=== PATIENT | male | born 1965 | race Caucasian/White ===

== ENCOUNTER → 2021-10-22 14:04 | Outpatient (BNVA) | payer MEDICARE, SELFPAY | PROVIDERS: Family Provider Family Medicine; PCP Physician Assistant Medical; Visit Provider Specialist | DX: F41.9 Anxiety disorder, unspecified (principal); F32.A Depression, unspecified; F13.20 Sedative, hypnotic or anxiolytic dependence, uncomplicated; T42.4X5A Adverse effect of benzodiazepines, initial encounter; Z87.891 Personal history of nicotine dependence | CPT/HCPCS: 99205 ==

== ENCOUNTER → 2022-08-29 15:24 | Outpatient (BNVA) | payer MEDICARE, MEDICAID, SELFPAY | PROVIDERS: Family Provider Family Medicine; PCP Physician Assistant Medical; Visit Provider Specialist | DX: F41.1 Generalized anxiety disorder (principal); F32.A Depression, unspecified; G31.84 Mild cognitive impairment of uncertain or unknown etiology | CPT/HCPCS: 99215 ==

== ENCOUNTER → 2022-09-02 07:58 | Outpatient (BNVA) | payer MEDICARE, MEDICAID, SELFPAY | PROVIDERS: Family Provider Family Medicine; PCP Physician Assistant Medical; Referring Provider Specialist; Visit Provider Specialist | DX: G31.84 Mild cognitive impairment of uncertain or unknown etiology (principal) | CPT/HCPCS: 95812 ==

== ENCOUNTER 2022-11-26 15:39 | Outpatient (CLI) | payer MEDICARE, MEDICAID, SELFPAY ==
[2022-11-28 11:24] LABS: Lead Blood <1.0 mcg/dL (<3.5)
[2022-12-01 12:00] LABS: Arsenic Blood <10 mcg/L (<23); Mercury Blood <5 mcg/L (<OR=10)
== END 2022-11-26 15:40 | disposition home or self-care (01) ==
PROVIDERS: PCP Family Medicine; Visit Provider Family Medicine
DX: Z77.018 Contact with and (suspected) exposure to other hazardous metals (principal)
CPT/HCPCS: 82175; 83655; 83825

== ENCOUNTER 2023-07-17 14:22 | Outpatient (CLI) | payer MEDICARE, MEDICAID, SELFPAY ==
[2023-07-17 14:58] LABS: Basophils # 0.1 10^3/uL (0.0-0.1); Basophils % 1.3 %; Eosinophils # 0.1 10^3/uL (0.0-0.8); Eosinophils % 1.9 %; Hematocrit 41.9 % (37-53); Lymphocytes # 1.9 10^3/uL (0.8-4.8); Lymphocytes % 29.9 %; Mean Corpuscular HGB Conc 33.9 g/dL (30-55); Mean Corpuscular Hemoglobin 31.1 pg (27-33); Mean Corpuscular Volume 91.9 fl (82-101); Mean Platelet Volume 9.1 fL (7.4-10.4); Monocytes # 0.4 10^3/uL (0.2-0.9); Monocytes % 5.9 %; Neutrophils # 3.81 10^3/uL (1.8-7.7); Neutrophils % 60.7 %; Nucleated Red Blood Cells % 0 %; Platelet Count 262 10^3/cmm (157-399); Red Blood Count 4.56 10^6/uL (3.85-5.65); Red Cell Distribution Width 12.7 % (12.1-15.1); White Blood Count 6.28 10^3/uL (3.29-11.43)
[2023-07-17 15:38] LABS: Albumin Level 3.9 g/dL (3.5-5.2); Alkaline Phosphatase 73 U/L (40-130); Anion Gap 12.3 (5-19); Aspartate Amino Transferase 22 U/L (0-40); Blood Urea Nitrogen 12 mg/dL (6-20); Carbon Dioxide 28 mmol/L (22-29); Chloride 100 mmol/L (98-107); Chol HDL Ratio 3.62 mg/dL (1.0-5.00); Cholesterol 181 mg/dL (0-200); Globulin 3.1 g/dL (1.3-4.6); Glomerular Filtration Rate 86.7 mL/min (90-130); Glucose 91 mg/dL (65-115); HDL Cholesterol 50 mg/dL (60-100); LDL Cholesterol Calculated 115 mg/dL (50-129); Osmolality Calculated 281 mOsm/kg (285-295); Potassium 4.3 mmol/L (3.5-5.1); Sodium 136 mmol/L (136-145); Thyroid Stimulating Hormone 2.42 uIU/mL (0.27-4.20); Total Bilirubin 0.4 mg/dL (0.15-1.2); Triglycerides 78 mg/dL (0-150); Vitamin B12 466 pg/mL (232-1245)
[2023-07-17 15:49] LABS: Alanine Aminotransferase 14 U/L (0-41)
[2023-07-20 16:54] LABS: Copper Level 94 mcg/dL (70-175)
== END 2023-07-17 14:23 | disposition home or self-care (01) ==
LOC: LAB 14:25
PROVIDERS: PCP Family Medicine; Visit Provider Family Medicine
DX: E03.4 Atrophy of thyroid (acquired) (principal); K90.89 Other intestinal malabsorption; R53.82 Chronic fatigue, unspecified
CPT/HCPCS: 36415; 80053; 80061; 82525; 82607; 83735; 84443; 85025

== ENCOUNTER 2023-07-23 10:52 | Outpatient (CLI) | payer MEDICARE, MEDICAID, SELFPAY ==
--- NOTE | 2023-07-23 11:00 | XR_ITS ---
WS: [id number] Chest 2 views, 07/23/2023 Clinical Data: DYSPNEA ON EXERTION Comparison: Portable chest, 08/29/2015. Findings: No nodules, masses or effusions are seen. The heart is normal. The pulmonary vascularity is not increased. No pneumonia or pneumothorax is seen. The diaphragms are flattened. Impression: Hyperinflation.
== END 2023-07-23 10:53 | disposition home or self-care (01) ==
LOC: RAD 10:56
PROVIDERS: PCP Family Medicine; Visit Provider Family Medicine
DX: R06.09 Other forms of dyspnea (principal); R91.8 Other nonspecific abnormal finding of lung field
CPT/HCPCS: 71046

== ENCOUNTER 2025-06-03 13:19 | Emergency (ER) | payer MEDICARE, SELFPAY ==
[2025-06-03 13:23] VITALS: BP 141/81; PULSE 90; RESP 20; TEMP 36.5; O2SAT 98; BMI 25.8
--- OUTSIDE RECORDS SUMMARY | 2025-06-03 13:26 | XMS_ITS | Encounter Summary ---
Author Organization [facility] Address [address] [place] [address] Care Team Providers Care Filter Bed Placer Name Role Phone Nevaeh Campos Almita WANG Primary Care Provider [phone] Reason for Referral * Outpatient Services (Routine) - Closed Specialty Diagnoses / Procedures Referred By Contac t Referred To Contact Radiology Diagnoses Chest pain, unspecified type Palpitations SOB (shortness of breath) Procedures ECHO STRESS W CONTRAST EXER W DOPP AND COLOR FL ECHO STRESS TEST EXERCISE W DOPP AND COLOR FLOW Valdo Ferguson MD Phone: tel: [facility] [address] [place] [address] Phone: tel: fax: Referral ID Status Reason Start Date Expiration Date V isits Requested Visits Authorized [id number] Closed SGF [facility] TO SCHEDULE (SGF) 06/27/2016 07/28/2017 1 1 TERM CARE PHLEBOTOMIST Encounter Details Date Type Department Care Team (Late st Contact Info) Description 07/17/2016 Ancillary Orders [facility] [place] [address] [place] [address] Valdo Ferguson MD [address] [place] [id number] Chest pain, unspecified type; Palpitations; SOB (shortness of breath) Social History Tobacco Use Types Packs/Day Years Used Date Smoking Tobacco: Light Smoker Cigarettes 1.5 25 Started: 980; Last attempted to quit: 06/22/2004 E-Cigarette/Mist Inhalation Device Alcohol Use Standard Drinks/Week Comments Yes 0.8 (1 standard drink = 0.6 oz p ure alcohol) rarely Sex and Gender Information Value Date Recorded Sex Assigned at Not on file Legal Sex Male 3:32 AM LONG TERM CARE PHLEBOTOMIST Gender Identity Not on file Sexual Orientation Not on file documented as of this encounter Plan of Treatment Not on file documented as of this encounter Results * ECHO STRESS W CONTRAST EXER W DOPP AND COLOR FL (07/17/2016 3:18 PM LONG TERM CARE PHLEBOTOMIST) EJECTION FRACTION INTERFACE SYSTEM 07/17/2016 2:15 PM LONG TERM CARE PHLEBOTOMIST Narrative INTERFACE SYSTEM - 07/17/2016 5:45 PM [facility] [place] [address] Stress Echocardiography Ricky protocol Patient: Suzanne Study ECHO STRESS Chris Gregory ID: TEST Gender: M : 1965 Age: 50 Room: Study 07/17/2016 Pt Outpatient Date: Status: Study 02:15 PM CSN #: [id number] Time: Ordering:Keron Ferguson MD Interpreting:Agustin Nugent MD Manager Supplier: Krystal Ho [facility] Indications and History: Chest pain, unspecified type [R07.9 (ICD-10-CM)]; Palpitations [R00.2 (ICD-10-CM)]; SOB (shortness of breath) [R06.02 (ICD-10-CM)]. Risk factors: Family history of coronary artery disease. Current tobacco use. Labs, prior tests, procedures, and surgery: Echocardiography (November 22, 2014). Summary and Conclusion: - Left ventricle: The cavity size was normal. Wall thickness was normal. Systolic function was normal. The visually estimated ejection fraction was in the range of 55% to 60%. No diagnostic regional wall motion abnormality identified. - Right ventricle: The cavity size was normal. Systolic function was normal. - Mitral valve: Systolic bowing without prolapse. - Stress: Maximal heart rate during stress was 152bpm (90% of maximal predicted heart rate). The maximal predicted heart rate was 169bpm.The target heart rate was achieved. The rate-pressure product for the peak heart rate and blood pressure was 14236jw Hg/min. The patient experienced no chest pain during stress. Functional capacity was normal. - Stress ECG conclusions: There were no stress arrhythmias or conduction abnormalities. The stress ECG was negative for ischemia. Nguyen scoring: exercise time of 9.05min; maximum ST deviation of 0.5mm; no angina; resulting score is 7. This score predicts a low risk of cardiac events. - Staged echo: There was no echocardiographic evidence for stress-induced ischemia. Contrast used due to reduced image quality. Procedure information: Consent: The risks, benefits, and alternatives to the procedure were explained to the patient and consent was obtained. Procedure: Initial setup. A baseline ECG was recorded. Intravenous access was obtained. Surface ECG leads were monitored. Transthoracic echocardiography. Image quality was adequate. Scanning was performed from the parasternal, apical, and subcostal acoustic windows. Intravenous contrast (Definity) was administered to opacify the LV. There were no complications. Treadmill exercise testing was performed using the Ricky protocol. The patient exercised for 9 min, to protocol stage 3. Exercise was terminated due to achievement of target heart rate, mild dyspnea, and moderate fatigue. The patient was positioned for image acquisition and recovery monitoring. Transthoracic stress echocardiography. Images were captured at baseline and peak exercise. Study completion: The patient tolerated the procedure well. There were no complications. Ricky protocol. Study components: M-mode, complete 2D, complete spectral Doppler, and color Doppler. Height: Height: 175.3cm. Height: 69in. Weight: Weight: 85.7kg. Weight: 188.6lb. Body mass index: BMI: 27.9kg/m\S\2. Body surface area: BSA: 2.06m\S\2. Patient status: Outpatient. Study date: Study date: July 17, 2016. Location: Stress laboratory. Cardiac Anatomy: LEFT VENTRICLE: The cavity size was normal. Wall thickness was normal. Systolic function was normal. The visually estimated ejection fraction was in the range of 55% to 60%. No diagnostic regional wall motion abnormality identified. RIGHT VENTRICLE: The cavity size was normal. Systolic function was normal. LEFT ATRIUM: The atrium was normal in size. RIGHT ATRIUM: The atrium was normal in size. AORTIC VALVE: Trileaflet. Doppler: There was no stenosis. No significant regurgitation. Peak velocity ratio of LVOT to aortic valve: 0.9. Peak gradient: 5mm Hg (S). MITRAL VALVE: Systolic bowing without prolapse. Doppler: There was no evidence for stenosis. Trivial regurgitation. Valve area by pressure half-time: 2.97cm\S\2. Indexed valve area by pressure half-time: 1.44cm\S\2/m\S\2. TRICUSPID VALVE: Doppler: There was no evidence for stenosis. No regurgitation. PULMONIC VALVE: Not well visualized. Doppler: There was no evidence for stenosis. No regurgitation. PERICARDIUM: There was no pericardial effusion. AORTA: Aortic root: The aortic root was not dilated. Baseline ECG: Normal sinus rhythm. Stress protocol: - Baseline HR: 83bpm BP: 120/70 (87) - Peak stress HR: 152bpm BP: 158/84 (109) Stress results: Maximal heart rate during stress was 152bpm (90% of maximal predicted heart rate). The maximal predicted heart rate was 169bpm.The target heart rate was achieved. There was a normal resting blood pressure with an appropriate response to stress. The rate-pressure product for the peak heart rate and blood pressure was 64045jr Hg/min. The patient experienced no chest pain during stress. Functional capacity was normal. Stress ECG: There were no stress arrhythmias or conduction abnormalities. The stress ECG was negative for ischemia. Nguyen scoring: exercise time of 9.05min; maximum ST deviation of 0.5mm; no angina; resulting score is 7. This score predicts a low risk of cardiac events. Peak stress: LV size was reduced appropriately. LV global systolic function was appropriately augmented from baseline. No evidence for new LV regional wall motion abnormalities. Stress echo results: There was no echocardiographic evidence for stress-induced ischemia. Contrast used due to reduced image quality. 2D measurements Adult Normal Range Left ventricle LVID ED, chord, PLAX *58.7 mm 43-52 LVID ES, chord, PLAX 28.41 mm 23-38 FS, chord, PLAX 52 % >29 LVPW, ED 7.88 mm IVS/LVPW ratio, ED 0.95 <1.3 Vol ED, MOD1 91.1 ml Vol ES, MOD1 21.8 ml Stroke vol, MOD1 69.3 ml Vol index, ED, MOD1 44 ml/m\S\2 Vol index, ES, MOD1 11 ml/m\S\2 Stroke index, MOD1 33.6 ml/m\S\2 Vol ED, MOD2 73.3 ml 62-170 Vol ES, MOD2 23.9 ml EF, MOD2 67.41 % Vol index, ED, MOD2 36 ml/m\S\2 Vol index, ES, MOD2 12 ml/m\S\2 Ventricular septum IVS, ED 7.49 mm Aorta Root diam, ED 30.7 mm Left atrium AP dim ES, PLAX 34.08 mm 23-38 SI dim, A4C 44.49 mm 29-53 Area ES, A4C 11.57 cm\S\2 8.8-23.4 Vol, S 6 ml Vol index, S 2.9 ml/m\S\2 Right atrium SI dim, ES, A4C 48.8 mm 34-49 Right ventricle RVID ED, PLAX 22.71 mm 19-38 Doppler measurements Adult Normal Range LVOT Peak david, S 104.86 cm/s Aortic valve Peak david, S 115.92 cm/s Peak gradient, S 5 mm Hg Peak david ratio, LVOT/AV 0.9 Mitral valve Peak E david 57.85 cm/s Peak A david 52.24 cm/s Deceleration time *255 ms 150-230 Pressure half-time 74 ms Peak E/A ratio 1.11 Area (PHT) 2.97 cm\S\2 Area index (PHT) 1.44 cm\S\2/m\S\2 Legend: Mean values are shown as u=mean value. Asterisk (*) mcbride values outside specified normal range. [facility] are accredited with the [employer]reditation [employer] - Echocardiography. Prepared and Electronically Authenticated Agustin Nugent MD Confirmed 07/17/2016 17:44 Procedure Note Agustin Nugent MD - 07/17/2016 [facility] [address] [address] Stress Echocardiography Ricky protocol Patient: Suzanne Study ECHO STRESS Chris Gregory ID: TEST Gender: M : 1965 Age: 50 Room: Study 07/17/2016 Pt Outpatient Date: Status: Study 02:[address] [facility] #: [id number] Time: Ordering:Keron Ferguson MD Interpreting:Agustin Nugent MD Manager Supplier: Krystal Ho [facility] Indications and History: Chest pain, unspecified type [R07.9 (ICD-10-CM)]; Palpitations [R00.2 (ICD-10-CM)]; SOB (shortness of breath) [R06.02 (ICD-10-CM)]. Risk factors: Family history of coronary artery disease. Current tobacco use. Labs, prior tests, procedures, and surgery: Echocardiography (November 22, 2014). Summary and Conclusion: - Left ventricle: The cavity size was normal. Wall thickness was normal. Systolic function was normal. The visually estimated ejection fraction was in the range of 55% to 60%. No diagnostic regional wall motion abnormality identified. - Right ventricle: The cavity size was normal. Systolic function was normal. - Mitral valve: Systolic bowing without prolapse. - Stress: Maximal heart rate during stress was 152bpm (90% of maximal predicted heart rate). The maximal predicted heart rate was 169bpm.The target heart rate was achieved. The rate-pressure product for the peak heart rate and blood pressure was 27412ai Hg/min. The patient experienced no chest pain during stress. Functional capacity was normal. - Stress ECG conclusions: There were no stress arrhythmias or conduction abnormalities. The stress ECG was negative for ischemia. Nguyen scoring: exercise time of 9.05min; maximum ST deviation of 0.5mm; no angina; resulting score is 7. This score predicts a low risk of cardiac events. - Staged echo: There was no echocardiographic evidence for stress-induced ischemia. Contrast used due to reduced image quality. Procedure information: Consent: The risks, benefits, and alternatives to the procedure were explained to the patient and consent was obtained. Procedure: Initial setup. A baseline ECG was recorded. Intravenous access was obtained. Surface ECG leads were monitored. Transthoracic echocardiography. Image quality was adequate. Scanning was performed from the parasternal, apical, and subcostal acoustic windows. Intravenous contrast (Definity) was administered to opacify the LV. There were no complications. Treadmill exercise testing was performed using the Ricky protocol. The patient exercised for 9 min, to protocol stage 3. Exercise was terminated due to achievement of target heart rate, mild dyspnea, and moderate fatigue. The patient was positioned for image acquisition and recovery monitoring. Transthoracic stress echocardiography. Images were captured at baseline and peak exercise. Study completion: The patient tolerated the procedure well. There were no complications. Ricky protocol. Study components: M-mode, complete 2D, complete spectral Doppler, and color Doppler. Height: Height: 175.3cm. Height: 69in. Weight: Weight: 85.7kg. Weight: 188.6lb. Body mass index: BMI: 27.9kg/m\S\2. Body surface area: BSA: 2.06m\S\2. Patient status: Outpatient. Study date: Study date: July 17, 2016. Location: Stress laboratory. Cardiac Anatomy: LEFT VENTRICLE: The cavity size was normal. Wall thickness was normal. Systolic function was normal. The visually estimated ejection fraction was in the range of 55% to 60%. No diagnostic regional wall motion abnormality identified. RIGHT VENTRICLE: The cavity size was normal. Systolic function was normal. LEFT ATRIUM: The atrium was normal in size. RIGHT ATRIUM: The atrium was normal in size. AORTIC VALVE: Trileaflet. Doppler: There was no stenosis. No significant regurgitation. Peak velocity ratio of LVOT to aortic valve: 0.9. Peak gradient: 5mm Hg (S). MITRAL VALVE: Systolic bowing without prolapse. Doppler: There was no evidence for stenosis. Trivial regurgitation. Valve area by pressure half-time: 2.97cm\S\2. Indexed valve area by pressure half-time: 1.44cm\S\2/m\S\2. TRICUSPID VALVE: Doppler: There was no evidence for stenosis. No regurgitation. PULMONIC VALVE: Not well visualized. Doppler: There was no evidence for stenosis. No regurgitation. PERICARDIUM: There was no pericardial effusion. AORTA: Aortic root: The aortic root was not dilated. Baseline ECG: Normal sinus rhythm. Stress protocol: - Baseline HR: 83bpm BP: 120/70 (87) - Peak stress HR: 152bpm BP: 158/84 (109) Stress results: Maximal heart rate during stress was 152bpm (90% of maximal predicted heart rate). The maximal predicted heart rate was 169bpm.The target heart rate was achieved. There was a normal resting blood pressure with an appropriate response to stress. The rate-pressure product for the peak heart rate and blood pressure was 98313el Hg/min. The patient experienced no chest pain during stress. Functional capacity was normal. Stress ECG: There were no stress arrhythmias or conduction abnormalities. The stress ECG was negative for ischemia. Nguyen scoring: exercise time of 9.05min; maximum ST deviation of 0.5mm; no angina; resulting score is 7. This score predicts a low risk of cardiac events. Peak stress: LV size was reduced appropriately. LV global systolic function was appropriately augmented from baseline. No evidence for new LV regional wall motion abnormalities. Stress echo results: There was no echocardiographic evidence for stress-induced ischemia. Contrast used due to reduced image quality. 2D measurements Adult Normal Range Left ventricle LVID ED, chord, PLAX *58.7 mm 43-52 LVID ES, chord, PLAX 28.41 mm 23-38 FS, chord, PLAX 52 % >29 LVPW, ED 7.88 mm IVS/LVPW ratio, ED 0.95 <1.3 Vol ED, MOD1 91.1 ml Vol ES, MOD1 21.8 ml Stroke vol, MOD1 69.3 ml Vol index, ED, MOD1 44 ml/m\S\2 Vol index, ES, MOD1 11 ml/m\S\2 Stroke index, MOD1 33.6 ml/m\S\2 Vol ED, MOD2 73.3 ml 62-170 Vol ES, MOD2 23.9 ml EF, MOD2 67.41 % Vol index, ED, MOD2 36 ml/m\S\2 Vol index, ES, MOD2 12 ml/m\S\2 Ventricular septum IVS, ED 7.49 mm Aorta Root diam, ED 30.7 mm Left atrium AP dim ES, PLAX 34.08 mm 23-38 SI dim, A4C 44.49 mm 29-53 Area ES, A4C 11.57 cm\S\2 8.8-23.4 Vol, S 6 ml Vol index, S 2.9 ml/m\S\2 Right atrium SI dim, ES, A4C 48.8 mm 34-49 Right ventricle RVID ED, PLAX 22.71 mm 19-38 Doppler measurements Adult Normal Range LVOT Peak david, S 104.86 cm/s Aortic valve Peak david, S 115.92 cm/s Peak gradient, S 5 mm Hg Peak david ratio, LVOT/AV 0.9 Mitral valve Peak E david 57.85 cm/s Peak A david 52.24 cm/s Deceleration time *255 ms 150-230 Pressure half-time 74 ms Peak E/A ratio 1.11 Area (PHT) 2.97 cm\S\2 Area index (PHT) 1.44 cm\S\2/m\S\2 Legend: Mean values are shown as u=mean value. Asterisk (*) mcbride values outside specified normal range. [facility] are accredited with the [facility] [employer]reditation [employer] - Echocardiography. Prepared and Electronically Authenticated Agustin Nugent MD Confirmed 07/17/2016 17:44 Valdo Ferguson MD ORDERABLES Final Result Performing Organization Address City/State/[facility] Co de Phone Number INTERFACE SYSTEM Refer to clinic/hospital department documented in this encounter Visit Diagnoses Diagnosis Chest pain, unspecified type Palpitations SOB (shortness of breath) Shortness of breath Chest pain, unspecified type Palpitations SOB (shortness of breath) Shortness of breath documented in this encounter Additional Health Concerns Infection Onset Date Last Indicated Resolved Time R/O COVID-19 03/21/2020 03/21/2020 03/23/2020 1:31 AM CDT Assessment Noted Time PHQ-9 Depression Total Score: 3 07/11/19 14 2:00 PM LONG TERM CARE PHLEBOTOMIST documented as of this encounter Care Teams Filter Bed Placer Relationship Specialty Start Date End Date Nevaeh Campos DO [address] [place] [address] PCP - General Family Practice 02/26/10 documented as of this encounter
--- OUTSIDE RECORDS SUMMARY | 2025-06-03 13:26 | XMS_ITS | Clinical Summary ---
Author Organization 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 Active Clobetasol 0.05 % ShampooIndication s:Plaque psoriasis Use daily prn psoriasis. 118 mL 6 07/16/19 19 Active cyclobenzaprine (FLEXERIL) 5 mg Tablet Take 1 Tablet (5 mg) by mouth daily at bedtime. 30 Tablet 6 11/25/19 20 Active famotidine (PEPCID) 40 mg tablet Take 1 Tablet (40 mg) by mouth 2 times daily. 60 Tablet 6 02/24/20 20 Active EPINEPHrine (EPIPEN) 0.3 mg/0.3 mL Auto-Injector Inject 0.3 mL (0.3 mg) by intramuscular injection 1 time daily as needed for Anaphylaxis. 2 Each 3 02/24/20 20 Active sulfaSALAzine (AZULFIDINE) 500 mg tablet Take 1 Tablet (500 mg) by mouth 4 times daily. 120 Tablet 2 02/24/20 20 Active Ciclopirox (Penlac) 8 % SolutionIndicatio ns:Onychomycosis by See Admin Instructions route daily. Apply daily as directed. 6.6 mL 6 06/04/20 20 Active methylphenidate HCl (RITALIN) 20 mg tabletIndications :ADHD (attention deficit hyperactivity disorder), inattentive type Take 1 Tablet (20 mg) by mouth 3 times daily. 90 Tablet 08/29/19 21 Active methylphenidate HCl (RITALIN) 20 mg tabletIndications :ADHD (attention deficit hyperactivity disorder), inattentive type Take 1 Tablet (20 mg) by mouth 3 times daily. Do not fill until 10/28/2020 90 Tablet 08/29/19 21 Active ALPRAZolam (XANAX) 2 mg tabletIndications :Generalized anxiety disorder Take 1 Tablet (2 mg) by mouth 3 times daily as needed for Anxiety. 90 Tablet 2 08/29/19 21 Active buPROPion HCL (Wellbutrin XL) 150 mg Extended Release 24 hour tablet Take 1 Tablet (150 mg) by mouth daily in the morning. 30 Tablet 2 10/06/19 21 Active pantoprazole (PROTONIX) 40 mg Tablet, Delayed Release (E.C.)Indications :Gastroesophageal reflux disease without esophagitis Take 1 tablet by mouth once daily 30 Tablet 2 10/17/19 21 Active escitalopram oxalate (LEXAPRO) 5 mg tabletIndications :Generalized anxiety disorder,Moderate episode of recurrent major depressive disorder (CMS/HCC) Take 1 Tablet (5 mg) by mouth daily. 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 30 Tablet 11 11/11/19 21 Active Active Problems Problem Noted Date Diagnosed Date ADHD (attention deficit hype ractivity disorder), inattentive type 09/02/2020 Tobacco use 07/01/2016 Hypothyroidism due to acquired atrophy of thyroi d 09/28/2014 Hypertrophic soft palate 09/12/2013 Generalized anxiety disorder 07/21/2013 Panic attacks 07/21/2013 Ulcerative rectosigmoiditis without complication 07/11/2011 Dysphagia, oropharyngeal phase 03/06/2011 Obstructive sleep apnea 03/08/2009 Hypersomnia with sleep apnea 03/08/2009 Resolved Problems Problem Noted Date Diagnosed Date Resolved Date Nasal turbinate hypertrophy 02/26/2010 09/12/2013 Macroglossia 04/25/2009 09/12/2013 Hypertrophy of tonsils alone 03/08/2009 09/12/2013 Immunizations Immunization Administration Dates Next Due (ADACEL/BOOSTRIX)(10 YR UP) TDAP VACCINE, 0.5ML, IM 06/01/2018 (PREVNAR 13)(6 WKS UP) PNEUM OCOCCAL CONJUGATE (PCV13) 0.5 ML, IM 08/12/2012 Influenza Vaccine Split 3+ Yrs IM 08/12/2012 Family History Medical History Relation Name Comments Colon Cancer Neg Hx Social History Tobacco Use Types Packs/Day Years Used Date Smoking Tobacco: Former Cigarettes 1.5 25 0 06/22/1979 - 06/22/2004 Smokeless Tobacco: Never Tobacco Cessation:Counseling Given: Yes Comments:chew nicotine gum Alcohol Use Standard Drinks/Week Comments No 0 (1 standard drink = 0.6 oz pur e alcohol) Sex and Gender Information Value Date Recorded Sex Assigned at Not on file Legal 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 Gender Identity Not on file Sexual Orientation Not on file Last Filed Vital Signs Vital Sign Reading Time Taken Comments Blood Pressure 122/76 11/09/2020 2:22 PM CDT Pulse 91 11/09/2020 2:22 PM CDT Temperature 37 C (98.6 F) 11/09/2020 2:22 PM CDT Respiratory Rate 18 11/09/2020 2:22 PM CDT Oxygen Saturation 91% 11/09/2020 2:22 PM CDT Inhaled Oxygen Concentration - - Weight 84.8 kg (187 lb) 11/09/2020 2:22 PM CDT Height 175.3 cm (5' 9 ) 11/09/2020 2:22 PM CDT Body Mass Index 27.62 11/09/2020 2:22 PM CDT Plan of Treatment Health Maintenance Due Date Last Done Comments FIT/ DNA Q 3 YEARS (AUTO ORDER) 1982 FIT/FOBT Q 1 YEAR (AUTO ORDER) 1982 FLEX SIG/CT COLONOGRAPHY Q 5 YEARS (AUTO ORDER) 1982 Traditional Medicare (ACO) Annual Wellness Visit 10/22/1983 FIT-DNA Q 3 years 2009 FIT/FOBT Q 1 year 2009 Flex Sig/CT Colonography Q 5 years 2009 ZOSTER VACCINE (1 of 2) 2014 Pre-Diabetes and Diabetes Screening 08/29/2023 08/28/2020 INFLUENZA VACCINE (#1) 2025 04/15/2018, 2012 DTAP/TDAP/TD VACCINES (2 - Td or Tdap) 06/01/2028 06/01/2018 COLORECTAL CANCER SCREENING (AUTO ORDER) 12/07/2034 12/07/2024, 12/10/2021, 02/27/2017, Additional history exists COLORECTAL SCREENING 12/07/2034 12/07/2024, 12/10/2021, 02/27/2017, Additional history exists Colorectal Cancer Screening (AUTO ORDER) 12/07/2034 Colorectal Cancer Screening 12/07/2034 RSV VACCINE (60+ or ) (1 - 1-dose 75+ series) 10/22/2039 HEPATITIS B VACCINES Aged Out No long er eligible based on patient's age to complete this topic Medical Devices Implanted Type Area Qc Analyst Device Identifier Shelf Expiration Date Model / Serial / Lot Capsule Rodríg[employer] Ph Test [id number] - [id number] Implanted:Qty : 1 on 01/25/2020 by Cesar Garcia MD at [facility] Other N/A: Esophagus [employer] COVIDI[employer] movers. GIVEN [id number] 06/05/2021 [id number] / / [id number] Description:recorder M @ 34 cm Procedures Procedure Name Priority Date/Time Associated Diagnosis Comments HEMOGLOBIN A1C Routine 08/28/2020 5:19 PM ABRASIVE MIXER Elevated blood sugar ENDOSCOPY, COLON, SCREENING Routine 07/28/2011 from Last 3 Months or Most Recently Relevant to Health Maintenance Results * HEMOGLOBIN A1C (08/28/2020 5:19 PM ABRASIVE MIXER) HEMOGLOBIN A1C 5.3 See Comment % 08/28/2020 9:45 PM ABRASIVE MIXER [facility] EST. AVG GLUCOSE, A1C 105 mg/dL 08/28/2020 9:45 PM ABRASIVE MIXER [facility] Blood Venipuncture / Unknown 08/28/2020 5:19 PM ABRASIVE MIXER 08/28/2020 8:49 PM ABRASIVE MIXER Narrative [facility] - 08/28/2020 9:45 PM ABRASIVE MIXER HGB A1C INTERPRETATION NORMAL: <5.7% PRE-DIABETES: 5.7 - 6.4% DIABETES: 6.5% OR GREATER Falsely low A1C measurements can occur when: 1. Anemia and/or hemolytic anemia is present. 2. Hemoglobin variants present. 3. Renal failure. 4. Transfusion of blood product in the last 120 days. We recommend ordering a fructosamine test([id number]) to more accurately assess glycemic status if any of the above conditions are present. Neaveh Campos DO CHEMISTRY ORDERABLES Final Result [facility] CLIA# [id number] [place] [address] * ENDOSCOPY, COLON, SCREENING (07/28/2011) Abstract Spg Provider GI PROCEDURE ORDERABLES Fi nal Result from Last 3 Months or Most Recently Relevant to Health Maintenance Insurance MEDICARE PART A [place] B [place] Advance Directives For more information, please contact: [phone] * Full Code (Latest Code Status on File) Date Activated Date Inactivated Comments 01/25/2020 11:11 AM 01/25/2020 3:20 PM * Full Code Date Activated Date Inactivated Comments 01/05/2020 12:14 PM 01/05/2020 4:13 PM * Full Code Date Activated Date Inactivated Comments 02/27/2017 7:50 AM 02/27/2017 11:08 AM * Full Code Date Activated Date Inactivated Comments 09/16/2013 10:34 AM 09/17/2013 2:01 AM * Full Code Date Activated Date Inactivated Comments 09/24/2010 10:48 AM 09/25/2010 12:11 PM Care Teams Dielectric Machine Operator Relationship Specialty Start Date End Date Nevaeh Campos DO [address] [place] [address] PCP - General Family Practice 02/26/10
--- OUTSIDE RECORDS SUMMARY | 2025-06-03 13:26 | XMS_ITS | Patient Health Record ---
Author Organization [facility] Address [address], [address] [place], [place] [id number] Care Team Providers Care Core Oven Tender Name Role Phone Tavo Garcia Unavailable [phone] Reason For Referral No Information Social History Social History AUDIT-C Social Info Question Answer Notes Audit-C Did you have a drink containing alcohol i n the past year? Yes How often did you have a drink containing alcohol in the past year? Monthly or less (1 point) How many drinks did you have on typical day when you were drinking in the past year? 1 or 2 (0 points) How often did you have six or more drinks on one occasion in the past year? Never (0 points) TOBACCO USE Social Info Question Answer Notes TOBACCO USE Are you a: Never Tobacco user Plan Of Treatment No Information
--- OUTSIDE RECORDS SUMMARY | 2025-06-03 13:26 | XMS_ITS | Clinical Summary ---
Author Organization [facility] Address [address] [place] [address] Care Team Providers Care Instrument Calibrator Name Role Phone Nevaeh Campos Primary Care Provider Allergies Active Allergy Reactions Criticality Noted Date Comments Alpha-Gal (Oiwtbdtad-Vmgcf-7,3-Ga lactose) Itching Low 02/10/2022 Lansoprazole Other (See Comments) 03/08/2009 Uncontrolled muscle twitching Medications aspirin (ECOTRIN EC) 81 mg Tablet, Delayed Release (E.C.) Take 81 mg by mouth daily. 016 Active oxygen home deliveryIndicati ons:Nocturnal hypoxemia Home Oxygen Concentrator yes at 1 L/M Sleep, Delivery Device: Nasal Cannula Portability: no, May provide device best for patient needs(E system,home fill, conserving device) Length of Need: 99 months 1 Each 024 Active cyclobenzaprine (FLEXERIL) 5 mg TabletIndication s:Muscle spasms of both lower extremities Take 1 Tablet (5 mg) by mouth daily at bedtime. 30 Tablet 6 025 Active tadalafil (Cialis) 10 mg tabletIndication s:Erectile dysfunction, unspecified erectile dysfunction type Take 1 Tablet (10 mg) by mouth 1 time daily as needed for Erectile Dysfunction. 12 Tablet 025 Active EPINEPHrine (EPIPEN) 0.3 mg/0.3 mL Auto-InjectorInd ications:History of allergic reaction INJECT 0.3 MLS (0.3 MG) BY INTRAMUSCULAR INJECTION ONE TIME DAILY NEEDED FOR ANAPHYLAXIS 2 Each Active rOPINIRole (REQUIP) 0.25 mg tablet Take 1 Tablet (0.25 mg) by mouth daily at bedtime. 30 Tablet 6 Active Additional Information Patient not taking.Reason: Other (Comments) (Wont take because its for Dementia), Reported on 04/25/2025 levothyroxine 50 mcg tabletIndication s:Hypothyroidism due to acquired atrophy of thyroid Take 1 Tablet (50 mcg) by mouth daily in the morning. 100 Tablet 4 Active sulfaSALAzine (AZULFIDINE) 500 mg tabletIndication s:History of ulcerative colitis Take 1 Tablet (500 mg) by mouth 4 times daily. 120 Tablet 11 Active pantoprazole (PROTONIX) 40 mg Tablet, Delayed Release (E.C.)Indication s:Gastroesophage al reflux disease without esophagitis Take 1 Tablet (40 mg) by mouth 2 times daily. 180 Tablet 3 Active ALPRAZolam (XANAX) 2 mg tabletIndication s:Generalized anxiety disorder TAKE 1 TABLET BY MOUTH THREE TIMES DAILY NEEDED FOR ANXIETY 90 Tablet Active methylphenidate HCl (RITALIN) 20 mg tabletIndication s:ADHD (attention deficit hyperactivity disorder), inattentive type Take 1 Tablet (20 mg) by mouth 3 times daily. Max Daily Amount: 60 mg 90 Tablet Active ALPRAZolam (XANAX) 2 mg tabletIndication s:Generalized anxiety disorder Take 1 Tablet (2 mg) by mouth 3 times daily as needed for Anxiety. 90 Tablet 025 2024 Discontinued methylphenidate HCl (RITALIN) 20 mg tabletIndication s:ADHD (attention deficit hyperactivity disorder), inattentive type Take 1 Tablet (20 mg) by mouth 3 times daily. Max Daily Amount: 60 mg 90 Tablet 025 2024 Discontinued(R eorder) Active Problems Problem Noted Date Diagnosed Date History of ulcerative colitis 03/22/2025 Ulcerative proctitis without complication 2024 Restless leg syndrome 12/30/2024 Lateral epicondylitis of both elbows 09/21/2024 Irritable bowel syndrome wit h both constipation and diarrhea 06/21/2024 History of colitis 06/21/2024 Allergy to alpha-gal 06/21/2024 Chronic pain of multiple joints 12/01/2021 Gastroesophageal reflux disease without esophagi tis 12/01/2021 ADHD (attention deficit hype ractivity disorder), inattentive type 09/02/2020 Tobacco use 07/01/2016 Hypothyroidism due to acquired atrophy of thyroi d 09/28/2014 Hypertrophic soft palate 09/12/2013 Panic attacks 07/21/2013 Generalized anxiety disorder 07/21/2013 Dysphagia, oropharyngeal phase 03/06/2011 Obstructive sleep apnea 03/08/2009 Hypersomnia with sleep apnea 03/08/2009 Resolved Problems Problem Noted Date Diagnosed Date Resolved Date Moderate episode of recurren t major depressive disorder 12/01/2021 07/25/2024 Ulcerative rectosigmoiditis without complication 07/11/2011 10/19/2022 Nasal turbinate hypertrophy 02/26/2010 09/12/2013 Macroglossia 04/25/2009 09/12/2013 Hypertrophy of tonsils alone 03/08/2009 09/12/2013 Encounters Date Type Department Care Team Description 05/26/2025 [facility] [address] [place] [address] Nevaeh Campos DO ADHD (attention deficit hyperactivity disorder), inattentive type 05/25/2025 [facility] [address] [place] [address] Nevaeh Campos DO Generalized anxiety disorder 05/09/2025 External Device Data STL ABSTRACTION Provider, Abstract 05/09/2025 External Device Data STL ABSTRACTION Provider, Abstract 04/25/2025 11:40 AM RESEARCH PSYCHOLOGIST Office Visit 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 [address] [place] [address] Tanja Ross FNP History of ulcerative colitis (Primary Dx) 03/28/2025 External Device Data STL ABSTRACTION Provider, Abstract 03/23/2025 Results Follow-Up [facility] [address] [place] [address] Tanja Ross FNP LITHIUM LEVEL 03/23/2025 Orders Only [facility] [address] [place] [address] Tanja Ross FNP 03/23/2025 Telephone [facility] [address] [place] [address] Tanja Ross FNP Medication Assistance 03/22/2025 2:00 PM CDT Office Visit [facility] [address] [place] [address] Tanja Ross FNP Medicare annual wellness visit, subsequent (Primary Dx); History of ulcerative colitis; Hypothyroidism due to acquired atrophy of thyroid; Cramp in muscle; Allergy to alpha-gal; Chronic pain of multiple joints 03/22/2025 Orders Only [facility] [address] [place] [address] Tanja Ross FNP ADHD (attention deficit hyperactivity disorder), inattentive type 03/18/2025 Refill [facility] [address] [place] [address] Nevaeh Campos DO Generalized anxiety disorder 03/07/2025 External Device Data STL ABSTRACTION Provider, Abstract from Last 3 Months Immunizations Immunization Administration Dates Next Due (ADACEL/BOOSTRIX)(10 YR UP) TDAP VACCINE, 0.5ML, IM 06/01/2018 (PREVNAR 13)(6 WKS UP) PNEUM OCOCCAL CONJUGATE (PCV13) 0.5 ML, IM 08/12/2012 Influenza Vaccine Split 3+ Yrs IM 08/12/2012 Family History Medical History Relation Name Comments Colon Cancer Neg Hx Social History Tobacco Use Types Packs/Day Years Used Date Smoking Tobacco: Former Cigarettes 0.3 Q uit: 06/22/2004 Passive Smoke Exposure: Past Smokeless Tobacco: Never Tobacco Cessation:Counseling Given: Not Answered Comments:Quit smoking: chew nicotine gum 4 mg--stopped 11/17/24 Alcohol Use Standard Drinks/Week Comments No 0 (1 standard drink = 0.6 oz pur e alcohol) Financial Resource Strain Answer Date R ecorded How hard is it for you to pa y for the very basics like food, housing, medical care, and heating? Patient declined 12/25/2022 Food Insecurity Answer Date Recorded In the past 12 months, have you worried that your food would run out before you had money to buy more? Patient declined 2022 In the past 12 months, did y ou run out of food and didn't have money to buy more? Patient declined 12/25/2022 Transportation Needs Answer Date Record ed In the past 12 months, has l ack of transportation kept you from medical appointments or from getting medications? No 12/25/2022 Lack of Transportation (Non-Medical) Not on file 12/25/2022 Feeling Safe Answer Date Recorded Are you in a relationship wi th someone who hurts you emotionally and/or physically? No 12/07/2024 Sex and Gender Information Value Date Recorded Sex Assigned at Male 12/06/2024 7:19 PM CDT Legal Sex Male 9:14 AM RESEARCH PSYCHOLOGIST Gender Identity Male 12/06/2024 7:19 PM CDT Sexual Orientation Straight 12/06/2024 7: 19 PM CDT Last Filed Vital Signs Vital Sign Reading Time Taken Comments Blood Pressure 140/80 04/25/2025 11:58 AM RESEARCH PSYCHOLOGIST Pulse 95 04/25/2025 11:56 AM RESEARCH PSYCHOLOGIST Temperature 36.9 C (98.4 F) 04/25/2025 11:56 AM RESEARCH PSYCHOLOGIST Respiratory Rate 20 04/25/2025 11:56 AM RESEARCH PSYCHOLOGIST Oxygen Saturation 98% 04/25/2025 11:56 AM RESEARCH PSYCHOLOGIST Inhaled Oxygen Concentration - - Weight 80.5 kg (177 lb 6.4 oz) 04/25/2025 11:56 AM RESEARCH PSYCHOLOGIST Height 170.2 cm (5' 7 ) 04/25/2025 11:56 AM RESEARCH PSYCHOLOGIST Body Mass Index 27.78 04/25/2025 11:56 AM RESEARCH PSYCHOLOGIST Plan of Treatment Upcoming Encounters Date Type Department Care Team (Late st Contact Info) Description 07/04/2025 11:40 AM RESEARCH PSYCHOLOGIST Office Visit [facility] [address] [place] [address] Nevaeh Campos, DO [address] [place] [address] Health Maintenance Due Date Last Done Comments FIT-DNA Q 3 years 2009 FIT/FOBT Q 1 year 2009 Flex Sig/CT Colonography Q 5 years 2009 ZOSTER VACCINE (1 of 2) 2014 Pre-Diabetes and Diabetes Screening 08/29/2023 08/28/2020 INFLUENZA VACCINE (#1) 2025 , 04/15/2018, 08/12/2012 Traditional Medicare ([facility]) Annual Wellness Visit 03/23/2026 03/22/2025, 02/25/2024, 12/25/2022, Additional history exists COLORECTAL SCREENING 12/08/2027 12/07/2024, 12/07/2024, 12/10/2021, Additional history exists Colorectal Cancer Screening 12/08/2027 DTAP/TDAP/TD VACCINES (2 - Td or Tdap) 06/01/2028 06/01/2018 RSV VACCINE (60+ or ) (1 - 1-dose 75+ series) 10/22/2039 Abdominal Aortic Aneurysm (AAA) Screening Completed 10/10/2021, 07/25/2014 HEPATITIS B VACCINES Aged Out No long er eligible based on patient's age to complete this topic Goals Goal Patient Goal Type Associated Problems Recent Progress Patient-Stated? 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 GIVEN [id number] 06/05/2021 [id number] / / [id number] Description:recorder M@ 34 c m Procedures Procedure Name Priority Date/Time Associated Diagnosis Comments LITHIUM LEVEL Routine 03/22/2025 2:41 PM CDT Chronic pain of multiple joints COLONOSCOPY REPORT 12/07/2024 9: 40 AM CDT US ABDOMEN COMPLETE Routine 10/10/2021 6 :38 PM CDT LUQ abdominal pain HEMOGLOBIN A1C Routine 08/28/2020 5:19 PM RESEARCH PSYCHOLOGIST from Last 3 Months or Most Recently Relevant to Health Maintenance Results * (ABNORMAL) LITHIUM LEVEL (03/22/2025 2:41 PM CDT) LITHIUM <0.3(L) 0.6 - 1.2 mmol/L [facility] Comment: Verified by repeat analysis. FASTING:UNKNOWN FASTING: UNKNOWN Test Performed at: [facility] [address] [place] [address] Saida Tijeirna MD Blood 03/22/2025 2:41 PM CDT 03/22/2025 2:41 PM CDT Tanja REARDONP CHEMISTRY ORDERABLES Final Result [facility] [phone] [employer] [address] [place] [address] * COLONOSCOPY REPORT (12/07/2024 9:40 AM CDT) Narrative Procedure Note Faustino Mills MD - 12/07/2024 9:40 AM CDT GI Patient Name: Chris Palacios Procedure Date: 12/07/2024 Date of : 1965 Admit Type: Outpatient Age: 59 Attending MD: Faustino Mills , , Procedure: Colonoscopy Indications: Reported history of Ulcerative colitis Providers: Faustino Mills Referring MD: Tanja Ross Medicines: Monitored Anesthesia Care Complications: No immediate complications. Procedure: Pre-Anesthesia Assessment: - The risks and benefits of the procedure and the sedation options and risks were discussed with the patient. All questions were answered and informed consent was obtained. - ASA Grade Assessment: III - A patient with severe systemic disease. After I obtained informed consent, the scope was passed under direct vision. Throughout the procedure, the patient's blood pressure, pulse, and oxygen saturations were monitored continuously. The Colonoscope was introduced through the anus and advanced to 5 cm into the ileum. The colonoscopy was performed without difficulty. The patient tolerated the procedure well. The quality of the bowel preparation was adequate. Estimated Blood Loss: Estimated blood loss was minimal. Findings: The perianal and digital rectal examinations were normal. A 3 mm polyp was found in the mid transverse colon. The polyp was sessile. The polyp was removed with a cold snare. Resection and retrieval were complete. Internal hemorrhoids were found during retroflexion. The hemorrhoids were moderate. The exam was otherwise without abnormality. The terminal ileum appeared normal. Impression: - One 3 mm polyp in the mid transverse colon, removed with a cold snare. Resected and retrieved. - Internal hemorrhoids. - The examination was otherwise normal. - The examined portion of the ileum was normal. Recommendation: - Await pathology results. Faustino Mills, 12/07/2024 9:40:37 AM Number of Addenda: 0 Note Initiated On: 12/07/2024 9:01 AM Scope Withdrawal Time 0 hours 6 minutes 16 seconds Scope In: 9:27:05 AM Scope Out: 9:36:43 AM [address] [place], [place] us Faustino Mills MD GI PROCEDURE ORDERABLES Final Result * US ABDOMEN COMPLETE (10/10/2021 6:38 PM CDT) Anatomical Region Laterality Modality Abdomen Ultrasound 10/10/2021 6:38 PM CDT Impressions 10/12/2021 9:57 AM CDT IMPRESSION: Please see below. Exam: US ABDOMEN COMPLETE Date/Time of Exam: 10/10/2021 6:38 PM Reason For Exam: See Diagnosis Diagnosis: LUQ abdominal pain Findings: COMPARISON: None. LIVER Normal size, normal echogenicity, normal shape with smooth contour. No concerning hepatic lesion. GALLBLADDER No stones or sludge seen. Wall thickness at 2.6 mm (normal <3mm). Sonographic Ibarra sign: Negative. BILE DUCTS Common bile duct 2.0 mm. PANCREAS Visualized portions unremarkable. SPLEEN No focal lesions. Length 10.0 cm. Not well-visualized due to overlying artifact. RIGHT KIDNEY Length 10.1 cm Normal size and morphology. No hydronephrosis. No nephrolithiasis. No concerning renal lesion. LEFT KIDNEY Length 11.2 cm Normal size and morphology. No hydronephrosis. No nephrolithiasis. Simple left peripelvic cyst measures 3.1 x 3.1 x 3.2 cm. PERITONEUM / ASCITES Not visualized ABDOMINAL AORTA/IVC The mid abdominal aorta measures 2.1 cm AP, previously 2.[address] 04/02/2017. IMPRESSION: 1. No acute findings. 2. Bosniak 1 left peripelvic cyst. 3. 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 [id number] Narrative Procedure Note Brandon Fuentes MD - 10/12/2021 IMPRESSION: Please see below. Exam: US ABDOMEN COMPLETE Date/Time of Exam: 10/10/2021 6:38 PM Reason For Exam: See Diagnosis Diagnosis: LUQ abdominal pain Findings: COMPARISON: None. LIVER Normal size, normal echogenicity, normal shape with smooth contour. No concerning hepatic lesion. GALLBLADDER No stones or sludge seen. Wall thickness at 2.6 mm (normal <3mm). Sonographic Ibarra sign: Negative. BILE DUCTS Common bile duct 2.0 mm. PANCREAS Visualized portions unremarkable. SPLEEN No focal lesions. Length 10.0 cm. Not well-visualized due to overlying artifact. RIGHT KIDNEY Length 10.1 cm Normal size and morphology. No hydronephrosis. No nephrolithiasis. No concerning renal lesion. LEFT KIDNEY Length 11.2 cm Normal size and morphology. No hydronephrosis. No nephrolithiasis. Simple left peripelvic cyst measures 3.1 x 3.1 x 3.2 cm. PERITONEUM / ASCITES Not visualized ABDOMINAL AORTA/IVC The mid abdominal aorta measures 2.1 cm AP, previously 2.[address] 04/02/2017. IMPRESSION: 1. No acute findings. 2. Bosniak 1 left peripelvic cyst. 3. 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 [id number] Tanja Ross [facility] US ORDERABLES Final Resu lt * HEMOGLOBIN A1C (08/28/2020 5:19 PM RESEARCH PSYCHOLOGIST) HEMOGLOBIN A1C 5.3 See Comment % 08/28/2020 9:45 PM RESEARCH PSYCHOLOGIST [facility] EST. AVG GLUCOSE, A1C 105 mg/dL 08/28/2020 9:45 PM RESEARCH PSYCHOLOGIST [facility] Blood Venipuncture / Unknown 08/28/2020 5:19 PM RESEARCH PSYCHOLOGIST 08/28/2020 8:49 PM RESEARCH PSYCHOLOGIST Narrative [facility] - 08/28/2020 9:45 PM RESEARCH PSYCHOLOGIST HGB A1C INTERPRETATION NORMAL: <5.7% PRE-DIABETES: 5.7 - 6.4% DIABETES: 6.5% OR GREATER Falsely low A1C measurements can occur when: 1. Anemia and/or hemolytic anemia is present. 2. Hemoglobin variants present. 3. Renal failure. 4. Transfusion of blood product in the last 120 days. We recommend ordering a fructosamine test([id number]) to more accurately assess glycemic status if any of the above conditions are present. us Nevaeh Campos DO CHEMISTRY ORDERABLES Final Result [facility]# [id number] [address] [place] [address] from Last 3 Months or Most Recently Relevant to Health Maintenance Insurance [address] [place] [address] MEDICARE PART A AND B MEDICAID [place] Advance Directives For more information, please contact: [phone] * Full Code (Latest Code Status on File) Date Activated Date Inactivated Comments 12/07/2024 8:32 AM 12/07/2024 12:31 PM * Full Code Date Activated Date Inactivated Comments 12/10/2021 1:43 PM 12/10/2021 6:09 PM Care Teams Instrument Calibrator Relationship Specialty Start Date End Date Nevaeh Campos DO [address] [facility] [place] [address] PCP - General Family Practice 02/26/10
--- OUTSIDE RECORDS SUMMARY | 2025-06-03 13:26 | XMS_ITS | Encounter Summary ---
Author Organization [facility] Address [address] [place] [address] Care Team Providers Care Work Distributor Name Role Phone Nevaeh Campos DO Primary Care Provider Encounter Details Date Type Department Care Team (Latest Contact Info) Description 11/05/2006 Outpatient Historical [facility] [address] [facility] [place] [phone] Maximino Swann MD NO ADDRESS ON FILE Esophageal Reflux (Primary Dx); Unspecified Sleep Apnea Social History Tobacco Use Types Packs/Day Years Used Date Smoking Tobacco: Never Assessed Sex and Gender Information Value Date Recorded Sex Assigned at Not on file Legal 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 Gender Identity Not on file Sexual Orientation Not on file documented as of this encounter Plan of Treatment Not on file documented as of this encounter Visit Diagnoses Diagnosis Esophageal reflux- Primary Unspecified sleep apnea documented in this encounter Additional Health Concerns Infection Onset Date Last Indicated Resolved Time R/O COVID-19 03/21/2020 03/21/2020 03/23/2020 1:31 AM CDT documented as of this encounter Care Teams Work Distributor Relationship Specialty Start Date End Date Nevaeh Campos DO [address] [facility] [place] [phone] PCP - General Family Practice 02/26/10 documented as of this encounter
--- NOTE | 2025-06-03 15:13 | W.ED.GENADLT ---
HPI - General Adult General: Chief complaint: General Medical Stated complaint: Stuck Knee with Epipen (wasn't having a reaction) Time Seen by Provider: 06/03/25 14:45 Source: patient Mode of arrival: ambulatory Limitations: no limitations History of Present Illness: Patient is a 59-year-old male who presented to the emergency department after accidental injection of epinephrine to his right knee. States that he thought this was a decoy/fake injector, he stuck himself in the knee and notes he started feeling anxious, nauseous, and heart racing. This happened about 2 hours preexamination in the ED, his vitals have been stable. He is asymptomatic at this time. States that he owns the epinephrine pen due to his history of alpha gal but has never required administration of it. MD complaint: Accidental injection of epinephrine Associated symptoms: Deny chest pain, dyspnea, headache(s), nausea, rash, palpitations or vomiting Related Data Home Medications ?Medication ?Instructions ?Recorded ?Confirmed alprazolam 2 mg tablet 2 mg PO TID 10/22/21 09/02/22 dicyclomine 20 mg tablet 20 mg PO ONCE 10/22/21 09/02/22 meloxicam 15 mg tablet 15 mg PO DAILY 10/22/21 09/02/22 Previous Rx's ?Medication ?Instructions ?Recorded aripiprazole 5 mg tablet (Abilify) 5 mg PO DAILY #30 tabs 10/22/21 lamotrigine 50 mg tablet,extended 50 mg PO DAILY #30 tabs 10/22/21 release 24 hr (Lamictal XR) Allergies Allergy/AdvReac Type Severity Reaction Status Date / Time lansoprazole (From Prevacid) Allergy Intermediate Muscle Verified 06/03/25 13:28 twitching Alpha-Gal Allergy Unknown Verified 06/03/25 13:28 ([id number],3-Gala Review of Systems General: Reports: 10 or more systems reviewed and unremarkable except in HPI and below Const: Reports: other (Accidental epinephrine injection); Denies: fever(s), chills or fatigue Eyes: Denies: change in vision ENMT: Denies: throat pain, ear or mastoid pain or nasal discharge Card: Denies: chest pain, palpitations, swelling of feet/ankles or lightheadedness Resp: Denies: dyspnea, productive cough or wheezing GI: Denies: abdominal pain, nausea, vomiting, diarrhea or constipation : Denies: flank pain, difficulty urinating, dysuria or urinary frequency Musc: Denies: neck pain, back pain or joint pain Skin/Breast: Denies: rash Neuro: Denies: headache(s), numbness in extremities or weakness in extremities PFS ED PFSH: Social History Smoking and tobacco/nicotine status: former use of tobacco/nicotine Physical Exam Const: COMMON NORMALS: no acute distress, patient oriented x3 and no limitations GENERAL APPEARANCE: cooperative, comfortable and well developed ORIENTATION/CONSCIOUSNESS: Yes awake, Yes oriented to person, Yes oriented to place and Yes oriented to time HENMT: COMMON NORMALS: normocephalic, atraumatic and hearing grossly normal bilaterally HEAD & SCALP: normocephalic and atraumatic Eye: COMMON NORMALS: Equal, round and reactive pupils present, EOMs intact bilaterally and conjunctivae normal CONJUNCTIVA: Yes conjunctivae normal PUPIL: Yes Equal, round and reactive pupils present Neck/C-Spine: COMMON NORMALS: full ROM, supple and no JVD Resp: COMMON NORMALS: normal respiratory effort, No retractions, No use of accessory muscles and clear to auscultation bilaterally AUSCULTATION: clear to auscultation bilaterally Cardio: COMMON NORMALS: no JVD, regular rate, regular rhythm, No clicks present (Cardio), No murmurs present (Cardio) and No rub (Cardio) RATE: regular rate RHYTHM: regular rhythm GI: COMMON NORMALS: Normal to inspection, nondistended, normoactive bowel sounds present, Soft to palpation and non-tender AUSCULTATION: Yes normoactive bowel sounds PALPATION: Yes Soft to palpation RECTAL EXAM: Yes deferred Extremity: COMMON NORMALS: normal to inspection, full ROM and capillary refill normal Neuro: COMMON NORMALS: patient oriented x3, moves all extremities, no focal motor deficits and no sensory deficits noted SENSORIUM/ORIENTATION: Yes oriented to person, Yes oriented to place and Yes oriented to time Skin: COMMON NORMALS: no rashes or lesions noted GENERAL SKIN EXAM: no rashes or lesions noted Course Vital Signs: Vital signs: Vital Signs Temperature 97.7 F 06/03/25 13:23 Pulse Rate 90 06/03/25 13:23 Respiratory Rate 20 H 06/03/25 13:23 Blood Pressure 141/81 06/03/25 13:23 Pulse Oximetry 98 06/03/25 13:23 Oxygen Delivery Me thod Room Air 06/03/25 13:23 MDM - General Adult Medical Decision Making Patient presented after accidentally injecting himself in the right knee with his epinephrine pen, which he owns for his history of alpha gal allergy. Had noted some nausea anxiety and palpitations after the administration, this was 2 hours prior to my examination. He is asymptomatic at my time of interview and examination, I offered him evaluation in the ED for monitoring but he states he feels better and is wanting to go home. No further intervention at this time is allowed discharge home. His vitals are stable. No radiology studies performed this visit Discharge Plan Discharge Patient Disposition: Home Clinical Impression: Accidental injection of epinephrine Condition: Stable Prescriptions: No Action dicyclomine 20 mg tablet 20 mg PO ONCE meloxicam 15 mg tablet 15 mg PO DAILY alprazolam 2 mg tablet 2 mg PO TID lamotrigine [Lamictal XR] 50 mg tablet extended release 24hr 50 mg PO DAILY Qty: 30 3RF aripiprazole [Abilify] 5 mg tablet 5 mg PO DAILY Qty: 30 3RF Rx Instructions: 1 tab at bedtime. Discharge Orders: Discharge ED (Routine); Ordered 06/03/25 Ordered By: Andre Montes Referrals: Nevaeh Campos DO [Primary Care Provider, Family Practice] Patient Instructions: Patient Portal & Hiram Instructions Activity Restrictions/Additional Instructions: Discharge Instructions Reason for Visit You came to the hospital today after accidentally injecting epinephrine (from your EpiPen) into your right knee. You initially experienced nausea and anxiety, which are common side effects of epinephrine. These symptoms have now resolved, and your examination is normal. You are safe to go home. What Happened Epinephrine is a medication that increases heart rate and blood pressure. When injected accidentally, it commonly causes symptoms like anxiety, nausea, rapid heartbeat, sweating, shakiness, headache, and dizziness. These symptoms typically go away quickly with rest. What to Watch For at Home While serious problems after accidental epinephrine injection are rare, you should seek immediate medical care if you develop: - Chest pain or pressure - Epinephrine can rarely cause heart problems, especially in people over 50 years old - Severe or persistent headache - Difficulty breathing - Irregular or very fast heartbeat that doesn't improve with rest Injection Site Care Monitor your right knee injection site for signs of infection. Seek medical care if you notice: - Increasing redness, warmth, or swelling - Persistent tenderness or pain - Drainage or pus from the injection site - Fever Rare but serious skin infections have been reported after epinephrine injections. Preventing Future Accidents To avoid accidental injections in the future: - Use the assistive technology trainer device that comes with your EpiPen to practice proper technique - Always check that you're using the correct end of the device - Never put your thumb over either end of the EpiPen - Store your EpiPen in its protective case - Keep it away from children Activity and Medications - You may resume normal activities as tolerated - Rest if you feel tired or shaky - Continue all your regular medications as prescribed Follow-Up No specific follow-up is needed unless you develop any of the warning signs listed above. Consider scheduling a routine appointment with your primary care doctor to review proper EpiPen use and ensure you have an up-to-date prescription. When to Seek Emergency Care Call 911 or go to the nearest emergency room immediately if you experience: - Chest pain or pressure - Severe difficulty breathing - Signs of infection at the injection site (increasing redness, warmth, swelling, or drainage) - Any other concerning symptoms Print Language: German Coding Level of Care Code ED Director Of Diversity And Inclusion for Alin Holly
[2025-06-03 15:27] VITALS: BP 108/59; PULSE 80; RESP 16; TEMP 36.6; O2SAT 97
== END 2025-06-03 15:30 | disposition home or self-care (01) ==
PROVIDERS: Emergency Provider Physician Assistant; PCP Family Medicine
DX: T44.5X1A Poisoning by predominantly beta-adrenoreceptor agonists, accidental (unintentional), initial encounter (principal); X58.XXXA Exposure to other specified factors, initial encounter; Z87.891 Personal history of nicotine dependence
CPT/HCPCS: 99282